=== PATIENT | male | born 1995 ===

== ENCOUNTER 2021-08-21 00:30 | Emergency (ER) | payer BC, OTHER ==
[2021-08-21] MEDS ORDERED: DIAZEPAM 5 MG TABLET ONE (01:18)
[2021-08-21] MEDS ORDERED: HYDROCODONE/APAP 5/325 MG TAB ONE (01:19)
--- NOTE | 2021-08-21 02:20 | EDPHYS ---
Physician Documentation [facility] Name: Sebastian Goel Age: 26 yrs Sex: Male : 1995 Arrival Date: 08/21/2021 Time: 00:35 Bed 16 Private MD: ED Physician Dawit Guaman HPI: 08/21 01:05 This 26 yrs old Male presents to ER via Ambulatory with complaints of Low Back Pain, ms3 Trouble Walking, Leg Pain. 01:05 The patient presents with pain that is acute, with no known mechanism of injury. The ms3 symptoms are located in the low back. The pain does not radiate. The problem was sustained from twisting. Onset: The symptoms/episode began/occurred yesterday. Modifying factors: The patient symptoms are alleviated by nothing. Associated signs and symptoms: The patient has no apparent associated signs or symptoms. Severity of symptoms: At their worst the symptoms were severe, in the emergency department the symptoms have improved. Historical: - Allergies: 02:08 No Known Allergies; vc1 - Home Meds: 02:08 None [Active]; vc1 - PMHx: 02:08 None; vc1 - PSHx: 02:08 None; vc1 - Immunization history:: Adult Immunizations up to date. - Social history:: Smoking status: Patient denies any tobacco usage or history of. ROS: 01:05 Constitutional: Negative for fever, and chills. Neck: Negative for injury, pain, and ms3 swelling, Cardiovascular: Negative for chest pain, and palpitations. Respiratory: Negative for shortness of breath, cough, wheezing, and pleuritic chest pain, Abdomen/GI: Negative for abdominal pain, nausea, vomiting, diarrhea, and constipation, Skin: Negative for injury, rash, and discoloration. 01:05 Back: Positive for pain at rest, pain with movement. 01:05 All other systems are negative. Exam: 01:05 Constitutional: This is a well developed, well nourished patient who is awake, alert, ms3 and in no acute distress. Eyes: Pupils equal round and reactive to light, extra-ocular motions intact. Lids and lashes normal. Conjunctiva and sclera are non-icteric and not injected. Periorbital areas with no swelling, redness, or edema. ENT: Nares patent. No nasal discharge, no septal abnormalities noted. Tympanic membranes are normal and external auditory canals are clear. Oropharynx with no redness, swelling, or masses, exudates, or evidence of obstruction, uvula midline. Mucous membranes moist. Neck: Trachea midline, no cervical lymphadenopathy. Supple, full range of motion without nuchal rigidity, or vertebral point tenderness. No Meningismus. Chest/axilla: Normal chest wall appearance and motion. Nontender with no deformity. Cardiovascular: Regular rate and rhythm with a normal S1 and S2. No gallops, murmurs, or rubs. Normal PMI, no JVD. No pulse deficits. Respiratory: Lungs have equal breath sounds bilaterally, clear to auscultation and percussion. No rales, rhonchi or wheezes noted. No increased work of breathing, no retractions or nasal flaring. Abdomen/GI: Soft, non-tender, with normal bowel sounds. No distension or tympany. No guarding or rebound. No evidence of tenderness throughout. Skin: Warm, dry with normal turgor. Normal color with no rashes, no lesions, and no evidence of cellulitis. Psych: Awake, alert, with orientation to person, place and time. Behavior, mood, and affect are within normal limits. 01:05 Back: pain, that is moderate, ROM is normal, normal spinal alignment noted, muscle spasm, is appreciated in the left low back. Vital Signs: 00:48 Temp 98.2(O); tw5 01:59 BP 119 / 80; Pulse 80; Resp 20; Temp 98.4; Pulse Ox 99% ; Pain 0/10; vc1 02:00 Pain 0/10; vc1 MDM: 00:50 Patient medically screened. ms3 01:07 Differential diagnosis: strain, Herniated disc muscle spasm. ms3 02:21 Data reviewed: vital signs, nurses notes. Data interpreted: Pulse oximetry: on room air ms3 is 99 %. Interpretation: normal. Counseling: I had a detailed discussion with the patient and/or guardian regarding: the historical points, exam findings, and any diagnostic results supporting the discharge/admit diagnosis, the need for outpatient follow up, to return to the emergency department if symptoms worsen or persist or if there are any questions or concerns that arise at home. ED course: Discussed physical exam findings with patient. Patient to follow-up with in 2 to 3 days. Patient understands and agrees with plan. All questions were answered. Return precautions discussed include worsening symptoms, or any other concerns. On reevaluation patient symptoms improved, patient is alert and oriented x4, no apparent distress, nontoxic, ambulatory in emergency department.. Administered Medications: 01:19 Drug: HYDROcodone-acetaminophen 5 mg-325 mg 1 tabs Route: PO; vc1 02:00 Follow up: Pain 0/10 Adult; Response: No adverse reaction; Marked relief of symptoms; vc1 Pain is decreased 01:19 Drug: Valium (diazepam) 5 mg Route: PO; vc1 02:00 Follow up: Response: No adverse reaction; Marked relief of symptoms; Pain is decreased vc1 Disposition Summary: 08/21/21 02:19 Discharge Ordered Location: Home ms3 Condition: Stable ms3 Diagnosis - Low back pain ms3 - Muscle spasm of back ms3 Followup: ms3 - With: Duncan Cook DO - When: 2 - 3 days - Reason: Recheck today's complaints Discharge Instructions: - Discharge Summary Sheet ms3 - Acute Back Pain, Adult ms3 - Muscle Cramps and Spasms ms3 Forms: - Medication Reconciliation Form ms3 - Thank You Letter ms3 - Antibiotic Education ms3 - Prescription Opioid Use ms3 Prescriptions: - Ibuprofen 600 mg Oral Tablet - take 1 tablet by ORAL route every 6 hours As needed take with food; 30 tablet; ms3 Refills: 0, Product Selection Permitted - Cyclobenzaprine 10 mg Oral Tablet - take 1 tablet by ORAL route every 8 hours As needed; 30 tablet; Refills: 0, ms3 Product Selection Permitted Signatures: Dawit Guaman DO DO ms3 Elsy Blandon, RN RN vc1
--- NOTE | 2021-08-21 02:20 | ER ---
Nurse's Notes [facility] Name: Sebasitan Goel Age: 26 yrs Sex: Male : 1995 Arrival Date: 08/21/2021 Time: 00:35 Bed 16 Private MD: Diagnosis: Low back pain;Muscle spasm of back Presentation: 08/21 00:48 Chief complaint: Patient states: "I have back issues and I slept wrong, now I have tw5 shooting pain going down my left leg.". Initial Sepsis Screen: Does the patient meet any 2 criteria? No. Patient's initial sepsis screen is negative. Does the patient have a suspected source of infection? No. Patient's initial sepsis screen is negative. Risk Assessment: Do you want to hurt yourself or someone else? Patient reports no desire to harm self or others. 00:48 Method Of Arrival: Ambulatory tw5 00:48 Acuity: LEONEL 4 tw5 02:08 Coronavirus screen: At this time, the client does not indicate any symptoms associated vc1 with coronavirus-19. Ebola Screen: No symptoms or risks identified at this time. Onset of symptoms was August 20, 2021. Triage Assessment: 02:07 General: Appears in no apparent distress. comfortable, Behavior is calm, cooperative, vc1 appropriate for age. Pain: Complains of pain in left low back Pain radiates to left leg Pain currently is 5 out of 10 on a pain scale. EENT: No deficits noted. Neuro: Level of Consciousness is awake, alert, obeys commands, Oriented to person, place, time, situation, Appropriate for age. Cardiovascular: No deficits noted. Respiratory: Airway is patent Respiratory effort is even, unlabored, Respiratory pattern is regular, symmetrical. GI: No deficits noted. : No deficits noted. Historical: - Allergies: 02:08 No Known Allergies; vc1 - Home Meds: 02:08 None [Active]; vc1 - PMHx: 02:08 None; vc1 - PSHx: 02:08 None; vc1 - Immunization history:: Adult Immunizations up to date. - Social history:: Smoking status: Patient denies any tobacco usage or history of. Screenin:06 Abuse screen: Denies threats or abuse. Nutritional screening: No deficits noted. vc1 Tuberculosis screening: No symptoms or risk factors identified. Fall Risk No fall in past 12 months (0 pts). Secondary diagnosis (15 points) impaired mobility, No IV (0 pts). Ambulatory Aid- Crutches/Cane/Walker (15 pts). Gait- Impaired (20 pts.). Mental Status- Oriented to own ability (0 pts). Total Ballard Fall Scale indicates High Risk Score (45 or more points). Fall prevention measures have been instituted. Side Rails Up X 2 Family Present and informed to notify staff if the need to leave the bedside. Vital Signs: 00:48 Temp 98.2(O); tw5 01:59 BP 119 / 80; Pulse 80; Resp 20; Temp 98.4; Pulse Ox 99% ; Pain 0/10; vc1 02:00 Pain 0/10; vc1 ED Course: 00:35 Patient arrived in ED. bp1 00:40 Dawit Guaman DO is Attending Physician. ms3 00:49 Triage completed. tw5 00:57 Elsy Blandon, RN is Primary Nurse. vc1 02:07 Arm band placed on right wrist. vc1 02:08 Patient has correct armband on for positive identification. Bed in low position. Call vc1 light in reach. monitoring manager on. Pulse ox on. 02:18 Duncan Cook DO is Referral Physician. ms3 Administered Medications: 01:19 Drug: HYDROcodone-acetaminophen 5 mg-325 mg 1 tabs Route: PO; vc1 02:00 Follow up: Pain 0/10 Adult; Response: No adverse reaction; Marked relief of symptoms; vc1 Pain is decreased 01:19 Drug: Valium (diazepam) 5 mg Route: PO; vc1 02:00 Follow up: Response: No adverse reaction; Marked relief of symptoms; Pain is decreased vc1 Outcome: 02:19 Discharge ordered by . ms3 02:40 Patient left the ED. vc1 Signatures: Dawit Guaman DO DO ms3 FranelbaQian barton bp1 Ronaldo Figueredofany tw5 Elsy Blandon, RN RN vc1
[2021-08-21 02:56] VITALS: BP 119/80; TEMP 98.4; O2SAT 99
== END 2021-08-21 02:40 | disposition home or self-care (01) ==
LOC: ER 00:30
DX: M62.830 Muscle spasm of back (principal)
CPT/HCPCS: 99284